=== PATIENT | female | born 1985 | race Asian ===

== ENCOUNTER 2017-05-30 23:18 | Emergency (ER) | payer MEDICAID ==
[~2017-05-30] VITALS: Ht 152.4 cm; Wt 45.5 kg
[2017-05-30 23:21] VITALS: BP 119/78
[2017-05-31] MEDS ORDERED: DOXYCYCLINE 100MG TABLET ONE (00:51)
[2017-05-31] MEDS ORDERED: IBUPROFEN 200 MG TABLET ONE (00:51)
[2017-05-31] MEDS ORDERED: IBUPROFEN 200 MG TABLET PO ONE (01:00)
[2017-05-31] MEDS ORDERED: DOXYCYCLINE 100MG TABLET PO ONE (01:00)
== END 2017-05-31 01:06 | disposition home or self-care (01) ==
LOC: ED 23:59
DX: S90.32XA Contusion of left foot, initial encounter (principal); L03.116 Cellulitis of left lower limb; W22.8XXA Striking against or struck by other objects, initial encounter; Y93.89 Activity, other specified; Y92.098 Other place in other non-institutional residence as the place of occurrence of the external cause; Y99.8 Other external cause status
CPT/HCPCS: 99284

== ENCOUNTER 2017-12-25 19:02 | Emergency (ER) | payer MEDICAID ==
[~2017-12-25] VITALS: Ht 152.4 cm; Wt 51.5 kg
[2017-12-25] MEDS ORDERED: ACETAMINOPHEN 500 MG TABLET ONE (19:46)
[2017-12-25] MEDS ORDERED: ACETAMINOPHEN 500 MG TABLET PO ONE (20:00)
[2017-12-25 20:03] LABS: MICROSCOPIC INDICATED
[2017-12-25 20:10] LABS: HCG UR SG 1.025 (1.003-1.030)
[2017-12-25 20:50] VITALS: BP 112/65
== END 2017-12-25 20:53 | disposition home or self-care (01) ==
LOC: ED 19:26
DX: N39.0 Urinary tract infection, site not specified (principal); F17.200 Nicotine dependence, unspecified, uncomplicated
CPT/HCPCS: 81001; 81025; 99284

== ENCOUNTER 2017-12-26 04:04 | Emergency (ER) | payer MEDICAID ==
[~2017-12-26] VITALS: Ht 152.4 cm; Wt 51.4 kg
[2017-12-26 04:06] VITALS: BP 113/74
[2017-12-26] MEDS ORDERED: CEFDINIR 300 MG CAPSULE ONE (04:21)
[2017-12-26] MEDS ORDERED: PHENAZOPYRIDINE 200 MG TABLET ONE (04:21)
[2017-12-26] MEDS ORDERED: ONDANSETRON ODT 4 MG ONE (04:21)
[2017-12-26] MEDS ORDERED: CEFDINIR 300 MG CAPSULE PO ONE (04:30)
[2017-12-26] MEDS ORDERED: ONDANSETRON ODT 4 MG PO ONE (04:30)
[2017-12-26] MEDS ORDERED: PHENAZOPYRIDINE 200 MG TABLET PO ONE (04:30)
== END 2017-12-26 04:53 | disposition home or self-care (01) ==
LOC: ED 04:17
DX: N30.01 Acute cystitis with hematuria (principal); R30.0 Dysuria; Z72.9 Problem related to lifestyle, unspecified
CPT/HCPCS: 99284; Q0162

== ENCOUNTER 2020-05-06 17:16 | Emergency (ER) | payer MEDICAID ==
[~2020-05-06] VITALS: Ht 152.4 cm; Wt 65.2 kg
[2020-05-06 19:07] VITALS: BP 109/75
[2020-05-06] MEDS ORDERED: DIPH,PERTUSS(ACELL),TET VAC/PF 0.5 ML IM-VACC ONE ×2 (19:25→19:30)
--- NOTE | 2020-05-06 19:39 | NUR ---
Pt immunized per mar. pt resting in chair in room waiting for erp for history and assessment. call light is within reach of pt at this time.
[2020-05-06] MEDS ORDERED: NEOSPORIN OINT. PKT 1 PACKET ONE (19:42)
--- NOTE | 2020-05-06 19:45 | NUR ---
tech at to clean pt wound at this time.
[2020-05-06] MEDS ORDERED: RABIES VACCINE /PF 2.5 UNITS IM-VACC ONE (20:00)
[2020-05-06] MEDS ORDERED: RABIES IMMUNE GLOBULIN/PF 150 UNITS/ML, 2ML IM ONE (20:00)
[2020-05-06] MEDS ORDERED: RABIES IMMUNE GLOBULIN/PF 300 UNITS/ML,1ML IM ONE (22:30)
== END 2020-05-06 21:10 | disposition home or self-care (01) ==
LOC: ED 19:55
DX: S00.37XA Other superficial bite of nose, initial encounter (principal); W54.0XXA Bitten by dog, initial encounter; Y93.89 Activity, other specified; Y92.488 Other paved roadways as the place of occurrence of the external cause; Y99.8 Other external cause status
CPT/HCPCS: 90471; 90715; 99283